=== PATIENT | male | born 2000 | race African-American/Black ===

== ENCOUNTER 2024-12-25 16:22 | Emergency (ER) | payer OTHER, SELFPAY ==
[2024-12-25 16:24] VITALS: BP 137/110; PULSE 85; RESP 16; TEMP 37.1; O2SAT 97; BMI 33.1
--- NOTE | 2024-12-25 16:53 | CT_ITS ---
PROCEDURE: SPINE THORACIC WITHOUT CONTRAS 12/25/2024 REASON FOR EXAM: TRAUMA TECHNIQUE: Procedure Code: CTSPTH Modality: CT Procedure: SPINE THORACIC WITHOUT CONTRAS Coronal and Sagittal reconstruction series were provided. One or more dose reduction techniques were used (e.g., Automated exposure control, adjustment of the mA and/or kV according to patient size, use of iterative reconstruction technique). FINDINGS: Normal thoracic vertebral body height and alignment without subluxation and without compression deformity. No visible facet or acute spinous process deformity. Endplates are sharply defined. No proximal rib margin or transverse process deformity. No adjacent lung pathology. CT/Spine Thoracic without Contras IMPRESSION: Negative for thoracic spine fracture Reading Location: [facility]
--- NOTE | 2024-12-25 16:53 | CT_ITS ---
PROCEDURE: SPINE CERVICAL WITHOUT CONTRAS 12/25/2024 REASON FOR EXAM: TRAUMA TECHNIQUE: Procedure Code: CTSPC Modality: CT Procedure: SPINE CERVICAL WITHOUT CONTRAS Coronal and Sagittal reconstruction series were provided. One or more dose reduction techniques were used (e.g., Automated exposure control, adjustment of the mA and/or kV according to patient size, use of iterative reconstruction technique. FINDINGS: Normal cervical vertebral body height and alignment. Normal C1 and C2. No facet fracture or malalignment. Occipital condyles exhibit normal configuration. The lung apices are clear. No destructive changes involving the pedicles or lamina. No facet arthrosis. No visible soft tissue mass CT/Spine Cervical without Contras IMPRESSION: Study within normal limits Reading Location: [facility]
--- NOTE | 2024-12-25 16:53 | CT_ITS ---
PROCEDURE: SPINE LUMBAR WITHOUT CONTRAST 12/25/2024 REASON FOR EXAM: TRAUMA TECHNIQUE: Procedure Code: CTSPL Modality: CT Procedure: SPINE LUMBAR WITHOUT CONTRAST Coronal and Sagittal reconstruction series were provided. One or more dose reduction techniques were used (e.g., Automated exposure control, adjustment of the mA and/or kV according to patient size, use of iterative reconstruction technique FINDINGS: Normal lumbar alignment. Normal vertebral body height. No subluxation. No compression deformity. Transverse processes and spinous processes maintained. No paravertebral soft tissue mass. No significant lumbar spinal stenosis. CT/Spine Lumbar without Contrast IMPRESSION: Negative for fracture Reading Location: [facility]
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
[2024-12-25 17:23] VITALS: BP 161/79; PULSE 65; RESP 16; O2SAT 100
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
[2024-12-25 17:55] VITALS: BP 141/71; PULSE 62; RESP 16; TEMP 37.1; O2SAT 100
[2024-12-25 17:57] VITALS: BP 141/71
== END 2024-12-25 17:59 | disposition home or self-care (01) ==
PROVIDERS: Emergency Provider Emergency Medicine; Visit Provider Emergency Medicine
DX: S30.0XXA Contusion of lower back and pelvis, initial encounter (principal); M54.6 Pain in thoracic spine; R20.2 Paresthesia of skin; W22.8XXA Striking against or struck by other objects, initial encounter; Y93.61 Activity, american tackle football
CPT/HCPCS: 72125; 72128; 72131; 99285